=== PATIENT | female | born 1960 | race Caucasian/White ===

== ENCOUNTER 2016-11-28 10:36 | Emergency (ER) | payer MEDICAID ==
[2016-11-28 12:16] LABS: CALCIUM 8.9 mg/dL (8.5-10.1); CARBON DIOXIDE 29.4 mmol/L (21-32); CHLORIDE SERUM 98 mmol/L (98-107); CREATININE SERUM 0.4 mg/dL (0.6-1.0); GFR1 > 60 mL/min; GLUCOSE SERUM 100 mg/dL (74-106); POTASSIUM SERUM 3.3 mmol/L (3.5-5.1); SODIUM SERUM 137 mmol/L (136-145)
[2016-11-28 12:23] LABS: ALKALINE PHOSPHATASE 201 U/L (46-116); ALT/SGPT 59 U/L (14-59); AST/SGOT 128 U/L (15-37); BILIRUBIN TOTAL 0.5 mg/dL (0.20-1.00); CHOLESTEROL 128 mg/dL (<200); TOTAL PROTEIN, SERUM 7.1 g/dL (6.4-8.2)
[2016-11-28 13:08] VITALS: BP 124/89
== END 2016-11-28 13:08 | disposition home or self-care (01) ==
LOC: ED 10:36
PROVIDERS: Emergency Medicine
DX: I87.8 Other specified disorders of veins (principal)
CPT/HCPCS: 83880

== ENCOUNTER 2016-12-11 08:59 | Emergency (ER) | payer MEDICAID ==
[~2016-12-11] VITALS: Ht 157.5 cm; Wt 36.4 kg
[2016-12-11 10:22] VITALS: BP 110/79
== END 2016-12-11 10:45 | disposition home or self-care (01) ==
LOC: ED 08:59
DX: L03.116 Cellulitis of left lower limb (principal)
CPT/HCPCS: Q0092

== ENCOUNTER 2017-01-09 16:25 | Inpatient (IN) | payer SELFPAY ==
[~2017-01-09] VITALS: Ht 157.5 cm; Wt 39.6 kg
--- NOTE | 2017-01-09 20:27 | NUR ---
PT BIB FAMILY, COMPLAINING OF LEG PAIN AND RECTAL BLEEDING X5 DAYS, PT AOX4, RESTING IN BED, WILL CONTINUE TO MONITOR
--- NOTE | 2017-01-09 20:43 | NUR ---
MSE COMPLETED BY DR WASHINGTON
[2017-01-09 21:46] LABS: BASOPHIL % 0.3 % (0-2); PLATELET COUNT 157 x10^3mcL (130-400)
[2017-01-09 21:49] LABS: RED CELL DISTRIBUTION WIDTH 17.4 % (11.5-14.5)
[2017-01-09 22:11] LABS: ALKALINE PHOSPHATASE 250 U/L (46-116); ALT/SGPT 84 U/L (14-59); AST/SGOT 246 U/L (15-37); BILIRUBIN TOTAL 0.63 mg/dL (0.20-1.00); CALCIUM 6.8 mg/dL (8.5-10.1); CARBON DIOXIDE 22.6 mmol/L (21-32); CHLORIDE SERUM 105 mmol/L (98-107); CREATININE SERUM 0.3 mg/dL (0.6-1.0); GFR1 > 60 mL/min; GLUCOSE SERUM 71 mg/dL (74-106); LIPASE 446 IU/L (73-393); SODIUM SERUM 141 mmol/L (136-145)
[2017-01-09 22:12] LABS: ALBUMIN 2.3 g/dL (3.4-5.0); TOTAL PROTEIN, SERUM 4.5 g/dL (6.4-8.2)
[2017-01-09 22:14] LABS: POTASSIUM SERUM 2.4 mmol/L (3.5-5.1)
[2017-01-09] MEDS ORDERED: PAXIL10 MG PO (23:02)
[2017-01-09] MEDS ORDERED: TRAZODONE150 M1 PO (23:03)
--- NOTE | 2017-01-09 23:31 | NUR ---
REPORT GIVEN TO BRYCE FOR FURTHER CARE OF PT.
[2017-01-09 23:51] VITALS: BP 121/83
--- NOTE | 2017-01-09 23:55 | NUR ---
RECEIVED PT FROM ED VIA LEONIE. ORIENTED PT TO ROOM AND SURROUNDINGS. IV NOTED TO LEFT WRIST PATENT AND INTACT. TELE 22 PLACED ON PT READING NSR. INSTRUCTED PT ON THE USE OF CALL LIGHT FOR ASSISTANCE. ENDORSED PT TO PRIMARY NURSE BRYCE
--- NOTE | 2017-01-09 23:56 | NUR ---
PT NEWLY ADMITTED FROM ER, ALERT AND ORIENTED. PLEASANT AND COOPERATIVE. RESUMED THE IV FROM ER AT AND ALSO RESUMED K-RIDER THAT WAS STARTED IN ER. TOLERATED WELL. MADE COMFORTABLE IN BED. CALL LIGHT WITHIN EASY REACH. IV IN THE LEFT ARM ANGOICATH GUAGE 20. WILL MONITOR.
[2017-01-10 02:35] LABS: T3 TOTAL 1.09 ng/mL
[2017-01-10 02:41] LABS: MAGNESIUM 1.4 mg/dL (1.8-2.4); PHOSPHOROUS 2.6 mg/dL (2.5-4.9)
[2017-01-10 02:42] LABS: CHOLESTEROL/HDL RATIO 2.5
--- NOTE | 2017-01-10 02:46 | NUR ---
PT C/O MODERATE ABDOMINAL PAIN, REMI LE PAIN 02/13. REQUESTED FOR PAIN MEDICATION AND WAS ADMINISTERED. WILL MONITOR.
[2017-01-10 02:47] VITALS: BP 114/71
[2017-01-10 02:57] LABS: FREE T4 0.76 ng/dL (0.76-1.46); FREE THYROXINE INDEX 1.7 ug/dL (1.4-4.5); T4(THYROXINE) 5.4 ug/dL (4.7-13.3)
--- NOTE | 2017-01-10 02:57 | NUR ---
PT C/O NAUSEA, MEDICATED WITH ZOFRAN 4 MG IVPUSH. WILL MONITOR.
--- NOTE | 2017-01-10 05:08 | NUR ---
PT REQUESTED TO HAVE THE NICOTINE PATCH BECAUSE SHE WANTED TO SMOKE. ATIVAN 1 MG PO WAS GIVEN FOR HER ANXIETY AND KLOR CON 40 MEQ 2 TABLETS WAS GIVEN. ALSO MAG RIDER IS ADMINISTERED.
[2017-01-10 05:22] LABS: BASOPHIL % 0.2 % (0-2); PLATELET COUNT 142 x10^3mcL (130-400); RED CELL DISTRIBUTION WIDTH 17.7 % (11.5-14.5)
--- NOTE | 2017-01-10 05:23 | NUR ---
PT'S LOWER EXTREMITIES STILL HAS SOME REDNESS FROM CELLULITIS. REMI SCD'S WAS NOT APPLIED BECAUSE OF REMI LE CELLULITIS. STLL NPO. HAS SOME NAUSEA EALIER AND WAS GIVEN ZOFRAN WAND WAS EFFECTIVE. FOR PAIN MANAGEMENT PT RECEIVED MS 2 MG IVPUSH AND WAS EFFECTIVE. WILL CONTINUE TO MONITOR.
[2017-01-10 05:28] LABS: CALCIUM 7.1 mg/dL (8.5-10.1); CARBON DIOXIDE 27.1 mmol/L (21-32); CHLORIDE SERUM 104 mmol/L (98-107); CREATININE SERUM 0.4 mg/dL (0.6-1.0); GFR1 > 60 mL/min; GLUCOSE SERUM 80 mg/dL (74-106); LACTIC DEHYDROGENASE (LDH) 278 U/L (100-190); SODIUM SERUM 140 mmol/L (136-145)
[2017-01-10 05:29] LABS: POTASSIUM SERUM 2.8 mmol/L (3.5-5.1)
--- NOTE | 2017-01-10 05:32 | NUR ---
PT WAS JUST MEDICATED WITH KLOR CON 40MEQ( 2 TABLET). TRIED TO NOTIFY DR. ALBA. WAITING FOR RETURN CALL.
[2017-01-10 05:37] VITALS: BP 107/71
--- NOTE | 2017-01-10 05:41 | NUR ---
DR. ALBA RETURNED CALL AND CARRIED NEW ORDER.
--- NOTE | 2017-01-10 07:14 | NUR ---
PT IS RESTING. ALERT AND ORIENTED X 4. LUNGS CLEAR ON AUSCULTATIONS. ROOM AIR, 02SAT 97%. AMBULATORY. BOWEL SOUNDS ACTIVE AND PRESENT. PT'S K LEVEL THIS MORNING WAS 2.8 FROM 2.4. RECEIVED ONLY ONE K-RIDER AND 40 MEQ KLOR CON. MAG RIDER 2 GM IVPB WAS ALSO GIVEN. STILL HAS IV NS AT 100 ML PER HOUR INFUSING WELL IN THE LEFT WRIST. PATENT AND INTACT. PT ALSO RECEIVED LEVAQUIN IV FROM ER LAST NIGHT. ALL ANTIBIOTICS WERE FOR RIGHT AND LEFT LEG CELLULITIS. NOTIFIED DR. ALBA REGARDING THE LEVEL OF K2.8 AND ORDERED ANOTHER K-RIDER. ADMINISTERED 20MEQ K-RIDER. WILL MONITOR.
[2017-01-10 09:15] VITALS: BP 115/84
[2017-01-10 09:41] LABS: microscopic required? NO
[2017-01-10 09:54] LABS: UA SPECIFIC GRAVITY 1.015 (1.005-1.035); urine erythrocyte NEGATIVE (NEGATIVE)
[2017-01-10 10:07] LABS: AMPHETAMINE QUAL UR NONE DETECTED (NEG <=1000)
--- NOTE | 2017-01-10 10:30 | NUR ---
REPORT RECIEVED FROM PM NURSE, [facility]. PT IS AWAKE ALERT ADN ORIENTED X4 ABLE TO MAKE NEEDS KNOWN, CALL LIGHT IN REACH. WILL CONTINUE TO MONITOR.
[2017-01-10 13:12] VITALS: BP 125/83
[2017-01-10 14:33] LABS: MAGNESIUM 2.1 mg/dL (1.8-2.4)
--- NOTE | 2017-01-10 14:55 | NUR ---
PT RESTIGN IN BED NO SIGNS OF DISTRESS CALL LIGHT WITHIN REACH. WILL CONTINUE TO MONITOR.
--- NOTE | 2017-01-10 16:04 | NUR ---
PT RESTING IN BED NO SIGNS OF DISTRESS, OT REPORTS PAIN IS AT A TOLERABLE LEVEL. CALL LIGHT IN REACH WILL CONTINUE TO MONITOR.
[2017-01-10 17:15] VITALS: BP 115/77
--- NOTE | 2017-01-10 19:20 | NUR ---
PT STABLE CARE ENDORCED TO PM NURSE
--- NOTE | 2017-01-10 19:30 | NUR ---
PT IS ALERT AND ORIENTED X4. PLEASANT AND COOPERATIVE. LUNGS CLEAR ON AUSCULTAITONS BIALTERALLY UPPER AND LOWER BASES. ROOM AIR. 02SAT 97%. AMBULATORY. STILL HAS IV NS AT 100 ML PER HOUR INFUSING WELL IN THE LEFT WRIST. PATENT AND INTACT. STILL GETTING LEVAQUIN AND CLEOCIN IVPB. WITH HEPARIN SQ. MADE COMFORTABLE IN BED. CALL LIGHT WITHIN EASY REACH.
[2017-01-10 21:07] VITALS: BP 113/75
--- NOTE | 2017-01-10 21:25 | NUR ---
PT C/O RIGHT AND LEFT LEG PAIN 01/13. MEDICATED WITH NORCO 1 TAB PO. WILL MONITOR.
--- NOTE | 2017-01-11 03:02 | NUR ---
PT NOTED CONFUSED AND NOT FOLLOWING INSTRUCTION. A LOT OF LOOSE STOOLS AFTER THE LACTULOSE FOR ELEVATED AMMONIA. KEEP CLEAN AND DRY X3. PT WAS CAUGHT WANTING TO USE CIGARETTE. SHE GOT ONE STICK OF [employer] CIG[employer]TE AND WAS READY TO SMOKE. A MEDICAL CLAIMS EXAMINER WAS FOUND INIDE THE POCKET OF HER GOWN. WILL MONITOR.
--- NOTE | 2017-01-11 04:58 | NUR ---
PT C/O 02/13 BOTH LEG PAIN. MEDICATED WITH MORPHINE 2 MG IVPUSH. WILL MONITOR. STILL HAS IV NS AT 100 ML PER HOUR INFUSING WELL IN THE LEFT WRIST. PT STILL INTERMITTENTLY CONFUSED. WILL CONTINUE TO MONITOR.
--- NOTE | 2017-01-11 05:25 | NUR ---
PT IS ALERT AND ORIENTED. WITH PERIODS OF CONFUSION AND FORGETFUL. MORPHINE IVPUSH GIVEN C/O REMI LEG PAIN/ CELLULITIS AND ABDOMINAL PAIN. STILL HS IV NS AT 100 ML PER HOUR INFUSING WELL IN THE LEFT WRIST. PT CONTINUES TO HAVE DIARRHEA.
[2017-01-11 05:28] VITALS: BP 109/72
[2017-01-11 07:30] LABS: BASOPHIL % 0.7 % (0-2)
[2017-01-11 07:33] LABS: PLATELET COUNT 112 x10^3mcL (130-400); RED CELL DISTRIBUTION WIDTH 17.6 % (11.5-14.5)
--- NOTE | 2017-01-11 07:50 | NUR ---
AT 0720 - RECEIVED PATIENT FROM NIGHT NURSE. PATIENT STANDING OUT OF BED. AWAKE, ALERT AND ORIENTED TO PERSON, PLACE, TIME AND SITUATION. MONITOR SHOWING SINUS RHYTHM; RATE 90'S. IV INFUSING NS AT 100ML/HR. AMBULATING TO BATHROOM FOR TOILET NEEDS. REPORTS VERY LOOSE BM. AT 0735 - PATIENT NOW DRESSED. SAYS SHE HOPES TO BE RELEASED HOME TODAY.
[2017-01-11 07:53] LABS: CALCIUM 6.6 mg/dL (8.5-10.1); CARBON DIOXIDE 24.2 mmol/L (21-32); CHLORIDE SERUM 100 mmol/L (98-107); CREATININE SERUM 0.5 mg/dL (0.6-1.0); GFR1 > 60 mL/min; GLUCOSE SERUM 76 mg/dL (74-106); LIPASE 155 IU/L (73-393); MAGNESIUM 1.5 mg/dL (1.8-2.4); PHOSPHOROUS 1.8 mg/dL (2.5-4.9); POTASSIUM SERUM 3.3 mmol/L (3.5-5.1); SODIUM SERUM 134 mmol/L (136-145)
[2017-01-11 10:05] VITALS: BP 103/70
[2017-01-11] MEDS ORDERED: CLEOCIN HCL300 MG PO (10:34)
[2017-01-11] MEDS ORDERED: CALCIUM + D3 E1 EACH PO (10:36)
[2017-01-11] MEDS ORDERED: NIC14 TD (10:40)
[2017-01-11] MEDS ORDERED: LAC30L PO (10:44)
[2017-01-11] MEDS ORDERED: LAC PO (10:44)
[2017-01-11] MEDS ORDERED: NORCO1 TA2 PO (13:06)
[2017-01-11] MEDS ORDERED: OLEPTRO150 MG PO ×2 (13:06→13:25)
[2017-01-11] MEDS ORDERED: ATIVAN0.5 M1 PO ×2 (13:06→13:26)
[2017-01-11] MEDS ORDERED: COLACE100 MG PO (13:08)
[2017-01-11] MEDS ORDERED: KROGER NIC14 MG/24 H TD (13:08)
[2017-01-11 13:24] VITALS: BP 103/70
--- NOTE | 2017-01-11 14:05 | NUR ---
AT 0845 - SEEN BY DR FISHER DURING MORNING ROUNDS. MEDICAL TEAM DOCTORS, GERTRUDIS WALLACE AND MYSELF PRIMARY NURSE ALSO PRESENT. DR FISHER SPOKE WITH PATIENT ABOUT PLAN OF CARE. TO DC HOME TODAY. AT 0955 - TOLERATING CLEAR LIQUID DIET. PATIENT HAS BEEN AMBULATING IN HALLWAY. AT 1045 - RECEIVED DISCHARGE ORDERS, BUT PATIENT HAS ALSO BEEN ORDERED A MAGNESIUM RIDER. AT 1055 - COMMENCED 2 GRAM MG RIDER. TO INFUSE OVER 2 HRS. PATIENT AWARE OF DC DELAY. AT 1300 - MG RIDER COMPLETED. CALL PLACED FOR DR WILLSON TO COMPLETE DC ORDERS. AT 1315 - PATIENT AT NURSING STATION SPEAKING WITH DR FISHER AND OBTAINING DISCHARGE PRESCRIPTIONS. AT 1330 - PRINTED DISCHARGE INSTRUCTIONS GIVEN AND EXPLAINED TO PATIENT. PRESCRIPTION PROVIDED. ALSO INSTRUCTED TO GO TO HER PREFERRED PHARMACY FOR ADDITIONAL PRESCRIPTION. ADVISED ABOUT NOT SMOKING WITH NITODERM PATCH. IV CATHETER WAS REMOVED AND PATIENT TAKEN OFF CARDIAC MONITORING EARLIER. DISCHARGE HOME WITH FAMILY MEMBER. ESCORTED AMBULATORY TO CAR.
== END 2017-01-11 13:33 | disposition home or self-care (01) | DRG 438 ==
LOC: ED 16:25 → DU 23:05
PROVIDERS: Emergency Medicine; ADMIT Family Medicine
DX: K85.90 Acute pancreatitis without necrosis or infection, unspecified (principal); E43 Unspecified severe protein-calorie malnutrition; K62.5 Hemorrhage of anus and rectum; L03.116 Cellulitis of left lower limb; L03.115 Cellulitis of right lower limb; Z68.1 Body mass index [BMI] 19.9 or less, adult; E87.1 Hypo-osmolality and hyponatremia; E87.6 Hypokalemia; B19.20 Unspecified viral hepatitis C without hepatic coma; F10.10 Alcohol abuse, uncomplicated; Y90.9 Presence of alcohol in blood, level not specified; F41.9 Anxiety disorder, unspecified; E83.42 Hypomagnesemia; Z90.49 Acquired absence of other specified parts of digestive tract; Z88.8 Allergy status to other drugs, medicaments and biological substances; E03.9 Hypothyroidism, unspecified; F17.210 Nicotine dependence, cigarettes, uncomplicated; D53.9 Nutritional anemia, unspecified; K64.4 Residual hemorrhoidal skin tags; F12.10 Cannabis abuse, uncomplicated
CPT/HCPCS: 83880; 84439; C9113; G0480; J1644; J2270; J2405; J3475; J3480; J3490; J7030; Q0092